=== PATIENT | male | born 1950 | race Caucasian/White ===

== ENCOUNTER 2016-09-12 00:18 | Inpatient (IN) ==
[2016-09-12] MEDS ORDERED: DILTIAZEM 50 MG/10 ML VIAL IV ONE (00:50)
[2016-09-12] MEDS ORDERED: ASPIRIN 325 MG TABLET ONE (00:51)
[2016-09-12] MEDS ORDERED: ENOXAPARIN 80 MG/0.8 ML SYRINGE SUBCUT ONE (00:51)
[2016-09-12] MEDS ORDERED: DILTIAZEM 50 MG/10 ML VIAL IV STA (00:53)
[2016-09-12] MEDS ORDERED: ENOXAPARIN 100 MG/ML SYRINGE SUBCUT STA (00:53)
[2016-09-12] MEDS ORDERED: ALUM/MAG/SIMETH/LIDO VISC 1:1 30 ML BOTTLE PO STA (00:53)
[2016-09-12] MEDS ORDERED: MORPHINE 2 MG/1 ML SYRINGE IV STA (00:53)
[2016-09-12] MEDS ORDERED: ASPIRIN 325 MG TABLET PO STA (00:53)
[2016-09-12] MEDS ORDERED: ONDANSETRON 4 MG/2 ML VIAL IV STA (00:53)
[2016-09-12] MEDS ORDERED: SODIUM CHLORIDE 0.9% 1,000 ML IV STA (00:53)
[2016-09-12] MEDS ORDERED: ONDANSETRON 4 MG/2 ML VIAL ONE (01:02)
[2016-09-12] MEDS ORDERED: MORPHINE 2 MG/1 ML SYRINGE ONE (01:03)
[2016-09-12] MEDS ORDERED: ALUM/MAG/SIMETH/LIDO VISC 1:1 30 ML BOTTLE PO ONE (01:03)
[2016-09-12 01:04] LABS: Basophils % 0.2 % (0.0-0.8); Eosinophils % 0.4 % (0.00-10.9); Hematocrit 38.3 VOL% (42.0-52.0); Hemoglobin 12.2 GM/DL (14.0-18.0); Immature Granulocytes % 0.7 %; Immature Granulocytes Absolute 0.07 #; Mean Corpuscular HGB Conc 31.9 GM/DL (32-36); Mean Corpuscular Hemoglobin 27 PG (27-34); Mean Corpuscular Volume 84.5 FL (87-102); Mean Platelet Volume 9.6 FL (9.6-12.0); Monocytes # 0.7 10*3/uL (0.11-0.8); Monocytes % 7.1 % (1.7-12.7); Neutrophils # 7.5 10*3/uL (1.4-7.4); Neutrophils % 72.6 % (38.7-73.9); Platelet Count 293 T/CUMM (130-400); Red Blood Count 4.53 MC/CUMM (3.8-5.5); Red Cell Distribution Width 13.6 % (9.3-17.3); White Blood Count 10.3 T/CUMM (4-12)
--- NOTE | 2016-09-12 01:05 | Emergency Department Note ---
Yung Qiu Brittany, am scribing for, and in the presence of, Robbie Banks MD 00:59. Jocelyn Qiu Charles R, MD, personally performed the services described in this documentation, ascribed by Daksha Barragan in my presence, and it is both accurate and complete . Arrival - Arrival Chief Complaint: Chest Pain Stated Complaint: tightness chest and back jaw pain and heart rate h ED Nursing Triage Note: Patient to triage complaining of tightness in his chest with left jaw pain and between his shoulder blades hurting. Patient does have a heart history. Patient has already taken nitro x2 with some relief. Mode of Arrival: Wheelchair Limitations: No Limitations Source: Patient, RN Notes Reviewed Time Seen by Provider: 09/12/16 00:44 - History of Present Illness HPI Narrative: Patient is a 65 y/o white male presenting to the ED with c/o chest pain with an onset of about an hour SPECIMEN BOSS. Patient reports that he was woken out of his sleep with this pain and describes it as radiating into the jaw and between the shoulder blades. Patient states he took a wrist monitor and got a BP reading of 150/140 mmHg and HR of 150 bpm. reports that patient took two SL NTG for this. After taking NTG, he remeasured BP and HR noting that both came down some , but still not within normal limits. notes that patient currently takes an ASA 325 mg/day. Patient denies having any associated nausea, vomiting, diaphoresis, or arm pain. Patient's reports that last month patient was started on Rituxan for Rheumatoid Arthritis with first infusion tolerated well. She notes that his second infusion was yesterday and wonders if current symptoms are stemming from it. In room patient is in sinus tachycardia with an irregular rhythm. No other complaint/pain in the ED at this time. Patient was given Cardizem 10 mg, this slowed patient down to 69-70. Allergies/Adverse Reactions: Allergies Allergy/AdvReac Type Severity Reaction Status Date / Time Amoxicillin [From Amoxil] Allergy ITCHING Verified 09/12/16 00:26 Home Medications: Home Medications Medication Instructions Recorded Confirmed Type Omeprazole 1 tablet PO BID 09/08/15 06/03/16 History Aspirin [Ecotrin] 325 mg PO DAILY 02/27/16 06/03/16 History Sodium Chloride 5% Oph Soln [Marito 1 drop RIGHT EYE Q4H 02/27/16 06/03/16 History 128 Oph Soln] Folic Acid Tab 1 mg PO DAILY 06/03/16 06/03/16 History Atorvastatin [Lipitor] 20 mg PO BEDTIME 06/04/16 06/04/16 History Carvedilol [Coreg] 6.25 mg PO BID 06/04/16 06/04/16 History Losartan [Cozaar] 12.5 mg PO BID 06/04/16 06/04/16 History Methotrexate Sodium [Methotrexate] 25 mg IM Q7DAY 06/04/16 06/04/16 History Review of System - Review of System 12 point system: reviewed and no additional remarkable complaints except as stated - Review of System Constitutional: Absent: diaphoresis Head/Ears/Nose/Throat: Present: see HPI Respiratory: Absent: respiratory distress Cardiovascular: Present: chest pain Musculoskeletal: Present: as per HPI, arm pain Medical,Surgical,& Family Hx - Medical History Cardio: History of: Hypertension, [place] Rheumatology: History of;: Rheumatoid Arthritis Gastrointestinal: History of: GERD Musculoskeletal: No history of: Amputation - Surgical History Cardiac Surgeries: Sugical HX of: Cardiac Catheterization (Stents x2 per Dr Rene.) Neurologic Surgeries: Patient denies: Neurologic Surgery HEENT Surgeries: Patient denies: Tonsilectomy & Adenoidectomy Abdominal Surgeries: Patient denies: Abdominal Surgery Reproductive Surgeries: Patient denies;: Genitourinary Surgery - Family History Family History: Reports;: Family Heart Disease - Social History Smoking Status: Never smoker Frequency of Alcohol Use: None Type of Drug Use: None Exam Vital Signs: Vital Signs Temperature 97.7 F 09/12/16 00:22 Pulse Rate 115 H 09/12/16 00:22 Respiratory Rate 20 09/12/16 00:50 Blood Pressure 184/164 09/12/16 00:22 O2 Sat by Pulse Oximetry 97 09/12/16 00:22 - General General appearance: alert, in no apparent distress - Head Head exam: Present: atraumatic, normocephalic, normal inspection - Eye Eye exam: Present: normal appearance, PERRL, EOMI - ENT ENT exam: Present: normal exam, normal oropharynx - Neck Neck exam: Present: normal inspection, full ROM, trachea midline - Chest Chest inspection: Present: normal inspection, symmetric chest wall rise - Respiratory Respiratory exam: Present: normal lung sounds bilaterally. Absent: rales, rhonchi, wheezes - Cardiovascular Cardiovascular exam: Present: tachycardia, irregular rhythm, normal heart sounds. Absent: regular rate, normal rhythm - Abdominal Exam Abdominal exam: Present: soft, normal bowel sounds. Absent: distention, tenderness - Extremities Exam Extremities exam: Present: normal inspection - Back Exam Back exam: Present: normal inspection - Neurological Exam Neurological exam: Present: alert, oriented X3, CN II-XII intact. Absent: motor sensory deficit - Psychiatric Psychiatric exam: Present: normal affect - Skin Skin exam: Present: warm, dry Course Course Narrative: Patient was given Cardizem 10 mg, this slowed patient down to 69-70. - Reevaluation(s) Reevaluation #1: After 10 mg of Cardizem patient A. fib was converted to normal sinus rhythm or rate is 69[address] ST depression resolved pain went away chest pain-free currently Time: 01:04 - Consultations Consultation #1: Dr. Rene will admit patient Time: 01:47 Results - Labs CBC & BMP: 09/12/16 00:53 09/12/16 00:53 Lab Results: I have reviewed the patients labs Critical Care Time Critical Care Time: Yes Total Critical Care Time: 60 Disposition Clinical Impression: CAD (coronary artery disease), History of coronary artery stent placement, GERD (gastroesophageal reflux disease), Rheumatoid arthritis, New onset A. fib with RVR, Chest pain, Angina at rest Case discussed with: patient, patient's family Disposition: Still a Patient Condition: Stable Time of Disposition: 01:47
[2016-09-12 01:16] LABS: PT Patient Result 10.1 SECS
[2016-09-12 01:32] LABS: Alanine Aminotransferase 22 U/L (16-61); Albumin 2.6 G/DL (3.4-5.0); Alkaline Phosphatase 81 U/L (45-117); Aspartate Amino Transferase 21 U/L (0-37); Bilirubin,Total < 0.39 MG/DL (0.2-1.0); Blood Urea Nitrogen 18 MG/DL (7-18); Calcium 8.5 MG/DL (8.5-10.1); Glucose 86 MG/DL (74-106); Magnesium 1.7 MG/DL (1.8-2.4); Osmolality,Calculated 286.8 MOS/KG (273-304); Potassium 3.3 MMOL/L (3.5-5.1); Sodium 144 MMOL/L (136-145); Total Protein 5.9 G/DL (6.4-8.3)
[2016-09-12] MEDS ORDERED: MAGNESIUM SULF RIDER 2 GM in PREMIX 1 EACH IV STA (01:50)
[2016-09-12] MEDS ORDERED: POTASSIUM CHLORIDE 20 MEQ TABLET PO STA (01:51)
[2016-09-12] MEDS ORDERED: LACTATED RINGERS 500 ML IV ONE (01:54)
[2016-09-12] MEDS ORDERED: MAGNESIUM SULF RIDER 50 ML IV ONE (01:57)
[2016-09-12] MEDS ORDERED: POTASSIUM CHLORIDE 20 MEQ TABLET PO ONE (01:57)
[2016-09-12] MEDS ORDERED: ONDANSETRON 4 MG/2 ML VIAL IV PRN (03:40)
[2016-09-12] MEDS ORDERED: MAGNESIUM SULF RIDER 2 GM in PREMIX 1 EACH IV PRN ×2 (03:40→11:36)
[2016-09-12] MEDS ORDERED: ALBUTEROL/IPRATROPIUM 3 ML NEB RESP TX PRN (03:40)
[2016-09-12] MEDS ORDERED: POTASSIUM CHLORIDE 20 MEQ TABLET PO PRN (03:40)
[2016-09-12] MEDS ORDERED: MAGNESIUM SULF RIDER 4 GM in PREMIX 1 EACH IV PRN (03:40)
[2016-09-12] MEDS ORDERED: MORPHINE 2 MG/1 ML SYRINGE IV PRN (03:40)
[2016-09-12 05:49] LABS: Basophils % 0.2 % (0.0-0.8); Eosinophils # 0.1 10*3/uL (0.0-0.87); Eosinophils % 0.6 % (0.00-10.9); Hematocrit 38.9 VOL% (42.0-52.0); Hemoglobin 12.2 GM/DL (14.0-18.0); Immature Granulocytes % 0.8 %; Immature Granulocytes Absolute 0.08 #; Lymphocytes # 2.6 10*3/uL (1.4-4.0); Lymphocytes % 24.4 % (21.2-54.2); Mean Corpuscular HGB Conc 31.4 GM/DL (32-36); Mean Corpuscular Hemoglobin 27 PG (27-34); Mean Corpuscular Volume 85.3 FL (87-102); Mean Platelet Volume 9.6 FL (9.6-12.0); Monocytes # 0.8 10*3/uL (0.11-0.8); Monocytes % 7.2 % (1.7-12.7); Neutrophils % 66.8 % (38.7-73.9); Platelet Count 302 T/CUMM (130-400); Red Blood Count 4.56 MC/CUMM (3.8-5.5); Red Cell Distribution Width 13.7 % (9.3-17.3); White Blood Count 10.4 T/CUMM (4-12)
[2016-09-12 06:17] LABS: Alanine Aminotransferase 24 U/L (16-61); Albumin 2.8 G/DL (3.4-5.0); Alkaline Phosphatase 78 U/L (45-117); Aspartate Amino Transferase 22 U/L (0-37); Bilirubin,Total < 0.39 MG/DL (0.2-1.0); Blood Urea Nitrogen 17 MG/DL (7-18); Calcium 8.4 MG/DL (8.5-10.1); Cholesterol 169 MG/DL (50-200); Glucose 75 MG/DL (74-106); HDL Cholesterol 44 MG/DL (40-60); Magnesium 2.4 MG/DL (1.8-2.4); Potassium 3.7 MMOL/L (3.5-5.1); Risk Ratio 3.84; Sodium 143 MMOL/L (136-145); Triglycerides 266 MG/DL (2-150); VLDL CHOLESTEROL 53.2 MG/DL
--- NOTE | 2016-09-12 08:24 | XRay Report ---
Portable chest. Indication: Chest pain. Comparison: June 03, 2016. The heart and mediastinal contours are unremarkable. The pulmonary vasculature is normal. There is no consolidation, pneumothorax, or pleural effusion. The osseous structures are unremarkable. Impression: No abnormality is seen. PROCEDURE INTERPRETED AT [facility] DEPARTMENT OF RADIOLOGY Final Report Signed by: Dr. Dara Hung
--- NOTE | 2016-09-12 08:51 | XRay Report ---
Two-view chest. Indication: Shortness of breath. Comparison: Exam from earlier today. The heart and mediastinal contours are unremarkable. The pulmonary vasculature is normal. There is a slight interval increase in the interstitial lung markings at the bases, with the presence of curly B lines now seen. No dense consolidation, pneumothorax, or pleural effusion. Osseous structures are unremarkable. Impression: Mild increase in interstitial markings at the bases. This could indicate interstitial edema or early interstitial pneumonia. PROCEDURE INTERPRETED AT [facility] DEPARTMENT OF RADIOLOGY Final Report Signed by: Dr. Dara Hung
--- NOTE | 2016-09-12 09:04 | Cardiology History & Physical ---
<Mey Schmitt Issa - Last Filed: 09/12/16 08:39> Assessment and Plan - Time spent with patient Time spent with patient: Greater than 30 minutes (Due to assessment, plan, and documentation) (1) Atrial fibrillation with rapid ventricular response Status: Acute Assessment and plan: 65 y/o WM with history of CAD, HTN, HLD, RA, former tobacco use. Admitted shortly after midnight with AF RVR, converted to SR after 1 dose of IV Cardizem 10mg. Has maintained SR with rates 60-70 since. -Currently has had no recurrent episodes of AF. Will further discuss with Dr. Rene and await his recommendations. -He is currently NPO for possible further cardiac evaluation. -Patient does have concerns over new coronary disease. Last heart catheterization was in 2012. Dr. Rene to see and discuss further evaluation. Current Visit: Yes (2) CAD (coronary artery disease) Status: Chronic Current Visit: Yes (3) GERD (gastroesophageal reflux disease) Status: Chronic Current Visit: Yes (4) History of coronary artery stent placement Status: Chronic Current Visit: Yes (5) Rheumatoid arthritis Status: Chronic Current Visit: Yes (6) Depression with anxiety Status: Chronic Current Visit: No (7) Hypercholesterolemia Status: Chronic Current Visit: No History of Present Illness Chief complaint: tachycardia, jaw pain History of present illness: [facility]: DR. RENE PCP: DR. AMBROSE Mr. Stone is a 65 year old male who is routinely followed by Dr. Rene. He has a history of coronary artery disease, hypertension, hyperlipidemia, former smoker, rheumatoid arthritis, anxiety, prior in STEMI, chronic neck pain. He is a former tobacco user. He is status post stent placement to the proximal LAD and circumflex marginal (second vessel) on March 24, [address] Rene. He presented to the emergency room shortly after midnight with complaints of left jaw pain, tachycardia, and back pain. Mr. Stone tells me that he woke up around 2330 last night with left jaw pain that felt like a toothache and a pain between his shoulder blades that felt sharp and stabbing. He checked his blood pressure and heart rate and noted that his blood pressure was elevated at 150/ 140(?) and his heart rate was 153. He tells me he took 2 sublingual nitroglycerin prior to his arrival at the emergency room but reports this did not really help his pain. He reports this did lower his heart rate and blood pressure some but not significantly. He reports this pain was severe and lasted until he arrived at the emergency department, approximately 1 hour. He reports associated feelings of palpitations. He denies any chest discomfort, shortness of breath, nausea, diaphoresis, dizziness, lightheadedness, or syncope. He tells me his heart rate usually runs between 70-80 but he has noticed over the last 3 weeks it has been elevated in the 90s. He tells me when his heart rate has been in the 90s he has no symptoms of this. In the emergency room an EKG was obtained shortly after arrival and reveals atrial fibrillation with rapid ventricular response with a heart rate of 139. He was given 2 mg IV Cardizem and subsequently converted to normal sinus rhythm with a rate of 69. Since then, he has remained in a normal sinus rhythm with rates in the 60s and 70s throughout the night. He has had a few irregular heartbeats per the review nurse but no sustained atrial fibrillation. He tells me he still feels slightly uncomfortable but is in no pain. He was noted to have some mild troponin elevations of 0.049, 0.188, 0.170, and 0.167. This could be related to his tachycardia, but given his history and symptomatology, new CAD is difficult to exclude. Will further discuss with Dr. Rene. Per recent clinic records, his home blood pressures were running 110-120/75-80. He would occasionally have orthostasis and subsequently, many of his medications were backed off of including carvedilol. He tells me that for the last month he has received 2 treatments on Rituxan for rheumatoid arthritis at [facility] in [place]. His last treatment was this past Saturday and he reports he can already tell a difference in how this makes him feel. In May 2016 he was admitted to the hospital with chest pain and was found to have a slightly elevated d-dimer. He had a negative CT of the chest and was felt to have musculoskeletal chest wall pain and was discharged home. He had out patient stress testing done at the [facility] on May 29, 2016 which revealed a normal perfusion study, low risk for future cardiovascular events, left ventricular global function was normal with EF estimated to be 74%. There was inferoapical thinning on the WILVER view thought to be due to a hot p.m. muscle of the PTL wall. No redistribution seen. There is a history of statin intolerance documented in his chart; however he is currently on atorvastatin 20 mg p.o. nightly and is tolerating this. Will further discuss with Dr. Rene and await his recommendations. Currently, Mr. Stone is in normal sinus rhythm with HR of 60 and BP of 96/59. Home Medications Medication Instructions Recorded Confirmed Type Omeprazole 1 tablet PO BID 09/08/15 06/03/16 History Aspirin [Ecotrin] 325 mg PO DAILY 02/27/16 06/03/16 History Sodium Chloride 5% Oph Soln [Marito 1 drop RIGHT EYE Q4H 02/27/16 06/03/16 History 128 Oph Soln] Folic Acid Tab 1 mg PO DAILY 06/03/16 06/03/16 History Atorvastatin [Lipitor] 20 mg PO BEDTIME 06/04/16 06/04/16 History Carvedilol [Coreg] 6.25 mg PO BID 06/04/16 06/04/16 History Losartan [Cozaar] 12.5 mg PO BID 06/04/16 06/04/16 History Methotrexate Sodium [Methotrexate] 25 mg IM Q7DAY 06/04/16 06/04/16 History Allergies Allergy/AdvReac Type Severity Reaction Status Date / Time Amoxicillin [From Amoxil] Allergy ITCHING Verified 09/12/16 00:26 Review of systems: - Constitutional: Present: As per HPI. Absent: anorexia, chills, daytime sleepiness, excessive sweating, fever(s), frequent falls, headache(s), increased appetite, lethargy, malaise, night sweats, stops breathing during sleep, weakness, weight gain, weight loss, fatigue. - EENT Eyes: Present: As per HPI. Absent: blurry vision, diplopia, loss of vision Ears: Present: As per HPI. Absent: decreased hearing, ear discharge, ear pain Nose, mouth and throat: Present: As per HPI. Absent: dysphagia, epistaxis, headache(s), hoarseness, lip swelling, nasal congestion, neck mass, neck pain, sinus pressure, sore throat, throat swelling, tongue swelling, vertigo - Cardiovascular: Present: radiating jaw, neck or arm pain, back pain, palpitations, as per HPI. Absent: chest pain at rest, chest pain with activity , dyspnea, dyspnea on exertion, edema, claudication, diaphoresis, lightheadedness, orthopnea, PND - Respiratory: Present: as per HPI. Absent: dyspnea, dyspnea on exertion, cough , hemoptysis, wheezing, snoring, pain on inspiration - Gastrointestinal: Present: diarrhea-ongoing for the last 3-6 months, has been treated numerous times by Dr. Ambrose for this issue. As per HPI. Absent: abdominal pain, bloating, change in bowel habits, constipation, heartburn, hematemesis, hematochezia, loose stools, melena, nausea, vomiting - Genitourinary: Present: As per HPI. Absent: difficulty urinating, dysuria, flank pain, hematuria, nocturia, urinary frequency, urinary incontinence - Musculoskeletal: Present: back pain, As per HPI. Absent: arthralgias, joint swelling, limited range of motion, muscle cramps, muscle weakness, myalgias - Neurological: Present: As per HPI. Absent: abnormal gait, abnormal speech, behavioral changes, confusion, convulsions, disequilibrium, dizziness, focal weakness, frequent falls, headache(s), memory loss, numbness, paresthesias, radicular pain, syncope, tremor(s) - Psychiatric: Present: As per HPI. Absent: anxiety, confusion, depression, panic attacks - Endocrine: Present: As per HPI. Absent: cold intolerance, fatigue, heat intolerance, polydipsia, polyphagia - Hematologic/Lymphatic: Present: As per HPI. Absent: easy bleeding, easy bruising, lymphadenopathy Medical,Surgical,& Family Hx - Medical History Cardio: History of: Hypertension, PR Rheumatology: History of;: Rheumatoid Arthritis Gastrointestinal: History of: GERD Musculoskeletal: No history of: Amputation - Surgical History Cardiac Surgeries: Sugical HX of: Cardiac Catheterization (Stents x2 per Dr Rene.) Neurologic Surgeries: Patient denies: Neurologic Surgery HEENT Surgeries: Patient denies: Tonsilectomy & Adenoidectomy Abdominal Surgeries: Patient denies: Abdominal Surgery Reproductive Surgeries: Patient denies;: Genitourinary Surgery - Family History Family History: Reports;: Family Heart Disease - Social History Smoking Status: Never smoker Frequency of Alcohol Use: None Type of Drug Use: None Cardiology Physical Exam - Constitutional Vitals: Vital Signs Temp Pulse Resp BP Pulse Ox 98.0 F 60 18 96/59 97 04/05/17 08:00 09/12/16 08:00 09/12/16 08:00 09/12/16 08:00 09/12/16 08:00 Intake and Output 09/11/16 09/12/16 09/12/16 22:59 06:59 14:59 Intake Total 1550 / 1550 Output Total 150 / 150 Balance 1400 / 1400 Intake: IV 1550 / 1550 Lr 500 ml @ 999 mls/hr IV 500 / 500 BOLUS ONE Rx#:[id number] Magnesium Sulf Jon 2 gm 50 / 50 /50 ml In Premix 1 Each @ 25 mls/hr IV 1X ED STA Rx#:[id number] Ns 1,000 ml @ 999 mls/hr 1000 / 1000 IV 1X ED BOLUS STA Rx#: [id number] Output: Urine 150 / 150 Other: Voiding Method Urinal # Voids 1 Weight 173 lb Exam: General appearance: Pleasant and cooperative. Normal weight, no acute distress. - Head Head exam: Present: normal inspection, normocephalic, atraumatic. Absent: hematoma, laceration - Eye Eye exam: Present: EOMI. Absent: conjunctival injection, nystagmus, periorbital swelling, scleral icterus, laceration to eyelids Pupils: Present: PERRL. Absent: constricted, dilated, fixed, irregular, unequal - ENT ENT exam: Present: normal exam, normal external ear exam - Neck Neck exam: Present: normal inspection. Absent: lymphadenopathy, meningismus, tenderness, thyromegaly, no bruit. - Respiratory Respiratory exam: Present: clear to auscultation bilaterally. Absent: accessory muscle use, chest wall tenderness, no rales, rhonchi, or wheezes. - Cardiovascular Cardiovascular exam: Present: regular rate and rhythm. Absent: carotid bruit, gallop, JVD, rubs, murmur - GI/Abdominal GI/Abdominal exam: Present: normal bowel sounds, soft, mild epigastric tenderness to palpation. Absent: distended, firm, guarding, hernia, mass, rebound. - Extremities Exam Extremities exam: Present: normal inspection, normal capillary refill. Upper extremity pulses 2+. Lower extremity pulses 2+. Absent: calf tenderness, edema - Back Exam Back exam: Present: normal inspection. Absent: muscle spasm, vertebral tenderness - Neurological Exam Neurological exam: Present: alert, oriented X3, grossly intact without resting or essential tremor - Psychiatric Psychiatric exam: Present: normal affect, normal mood - Skin Skin exam: Present: normal color, warm, dry, intact. Absent: cyanosis, diaphoretic, rash, urticaria Result/EKG - Labs CBC & BMP: 09/12/16 05:26 09/12/16 05:26 Lab Results: I have reviewed the past 24 hour labs Labs: Laboratory Results - last 24 hr 09/12/16 09/12/16 09/12/16 03:31 05:26 05:26 WBC RBC Hgb Hct MCV MCH MCHC RDW Plt Count MPV Neut % (Auto) Lymph % (Auto) [place] % (Auto) Eos % (Auto) Baso % (Auto) Neut # (Auto) Lymph # (Auto) [place] # (Auto) Eos # (Auto) Baso # (Auto) Immature Gran % Nucleated RBC % Immature Gran # Nucleated RBCs # Sodium Potassium Chloride Carbon Dioxide Anion Gap BUN Creatinine GFR Calculation BUN/Creatinine Ratio Glucose Calculated Osmolality Calcium Magnesium Total Bilirubin AST ALT Alkaline Phosphatase Total Creatine Kinase CK-MB (CK-2) Troponin I 0.188 H D B-Natriuretic Peptide Total Protein Albumin Globulin Albumin/Globulin Ratio Triglycerides Cholesterol LDL Cholesterol VLDL Cholesterol HDL Cholesterol Heart Disease Risk Ratio Free T4 1.15 TSH 3rd Generation 2.120 09/12/16 09/12/16 09/12/16 05:26 05:26 05:26 WBC 10.4 RBC 4.56 Hgb 12.2 L Hct 38.9 L MCV 85.3 L MCH 27 MCHC 31.4 L RDW 13.7 Plt Count 302 MPV 9.6 Neut % (Auto) 66.8 Lymph % (Auto) 24.4 Burnet % (Auto) 7.2 Eos % (Auto) 0.6 Baso % (Auto) 0.2 Neut # (Auto) 7.0 Lymph # (Auto) 2.6 [place]et # (Auto) 0.8 Eos # (Auto) 0.1 Baso # (Auto) 0.0 Immature Gran % 0.8 Nucleated RBC % 0.0 Immature Gran # 0.08 Nucleated RBCs # 0.00 Sodium 143 Potassium 3.7 Chloride 107 Carbon Dioxide 25 Anion Gap 14.7 BUN 17 Creatinine 0.70 GFR Calculation 117 BUN/Creatinine Ratio 24.00 H Glucose 75 Calculated Osmolality 285.0 Calcium 8.4 L Magnesium 2.4 Total Bilirubin < 0.39 AST 22 ALT 24 Alkaline Phosphatase 78 Total Creatine Kinase 52 CK-MB (CK-2) 1.5 Troponin I 0.170 H B-Natriuretic Peptide Total Protein 6.0 L Albumin 2.8 L Globulin 3.2 Albumin/Globulin Ratio 0.8 L Triglycerides 266 H Cholesterol 169 LDL Cholesterol 98.0 VLDL Cholesterol 53.2 HDL Cholesterol 44 Heart Disease Risk Ratio 3.84 Free T4 TSH 3rd Generation 09/12/16 09/12/16 05:26 06:51 WBC RBC Hgb Hct MCV MCH MCHC RDW Plt Count MPV Neut % (Auto) Lymph % (Auto) [place] % (Auto) Eos % (Auto) Baso % (Auto) Neut # (Auto) Lymph # (Auto) [place] # (Auto) Eos # (Auto) Baso # (Auto) Immature Gran % Nucleated RBC % Immature Gran # Nucleated RBCs # Sodium Potassium Chloride Carbon Dioxide Anion Gap BUN Creatinine GFR Calculation BUN/Creatinine Ratio Glucose Calculated Osmolality Calcium Magnesium Total Bilirubin AST ALT Alkaline Phosphatase Total Creatine Kinase CK-MB (CK-2) Troponin I 0.167 H B-Natriuretic Peptide 126 H Total Protein Albumin Globulin Albumin/Globulin Ratio Triglycerides Cholesterol LDL Cholesterol VLDL Cholesterol HDL Cholesterol Heart Disease Risk Ratio Free T4 TSH 3rd Generation - EKG EKG results: interpreted by me, sinus rhythm <KrishnaSean abreu - Last Filed: 09/12/16 11:47> Assessment and Plan - Time spent with patient Time spent with patient: Greater than 30 minutes (1) Chest pain in adult Status: Resolved Assessment and plan: 1. His chest pain, with sales zone troponins, particular since they have a slight increase, could very well be due to coronary disease. Less likely, it could be due to A. fib RVR, GI or musculoskeletal cause Plan/recommendation: I discussed with the patient of options for evaluation. He wants a heart cath. Left heart cath and possible PTCA or stent. He is on aspirin We will continue the carvedilol He is on Lovenox Left heart cath and possible PTCA or stent were discussed with the patient. The risk of the procedure include but are not limited to a small risk of injury to the vessel, abnormal heart rhythm, stroke, heart attack, need for emergent surgery, contrast reaction, restenosis, or . The patient voices understanding, agrees with the plan, and desires to proceed with the heart catheterization. No bleeding in the pt's bowels, urine, or coughing up blood. No planned surgery for the next year. No contraindication to anticoagulation for a year. 2. Regarding his A. fib RVR, it could be due to coronary disease but could be due to low potassium low magnesium Plan/recommendation: Replete potassium and magnesium Probably his low potassium and magnesium is due to his chronic diarrhea He will need to see his PCP and his GI doctor regarding evaluation or treatment of his chronic diarrhea. It has apparently been worked up extensively and was he was told he "needs live with it". Current Visit: No (2) Atrial fibrillation with rapid ventricular response Status: Acute Current Visit: Yes (3) Hypokalemia Status: Acute Current Visit: Yes (4) Hypomagnesemia Status: Acute Current Visit: Yes (5) Chronic diarrhea of unknown origin Status: Acute Current Visit: Yes (6) CAD (coronary artery disease) Status: Chronic Current Visit: Yes (7) GERD (gastroesophageal reflux disease) Status: Chronic Current Visit: Yes (8) History of coronary artery stent placement Status: Chronic Current Visit: Yes (9) Rheumatoid arthritis Status: Chronic Current Visit: Yes (10) Depression with anxiety Status: Chronic Current Visit: No (11) Hypercholesterolemia Status: Chronic Current Visit: No (12) Panic attacks Status: Chronic Current Visit: No (13) Statin intolerance Status: Chronic Current Visit: No History of Present Illness History of present illness: Mr. Stone is a 65 year old male Cardiology Physical Exam - Constitutional Vitals: Vital Signs Temp Pulse Resp BP Pulse Ox 98.0 F 60 18 96/59 97 09/12/16 08:00 09/12/16 08:00 09/12/16 08:00 09/12/16 08:00 09/12/16 08:00 Intake and Output 09/11/16 09/12/16 09/12/16 23:59 07:59 15:59 Intake Total 1550 / 1550 Output Total 150 / 150 Balance 1400 / 1400 Intake: IV 1550 / 1550 Lr 500 ml @ 999 mls/hr IV 500 / 500 BOLUS ONE Rx#:[id number] Magnesium Sulf Jon 2 gm 50 / 50 /50 ml In Premix 1 Each @ 25 mls/hr IV 1X ED STA Rx#:[id number] Ns 1,000 ml @ 999 mls/hr 1000 / 1000 IV 1X ED BOLUS STA Rx#: [id number] Output: Urine 150 / 150 Other: Voiding Method Urinal # Voids 1 Weight 78.471 kg Patient Weight 09/12/16 23:59 Weight 78.471 kg Result/EKG - Labs CBC & BMP: 09/12/16 05:26 09/12/16 05:26 Labs: Laboratory Results - last 24 hr 09/12/16 09/12/16 09/12/16 03:31 05:26 05:26 WBC RBC Hgb Hct MCV MCH MCHC RDW Plt Count MPV Neut % (Auto) Lymph % (Auto) Burnet % (Auto) Eos % (Auto) Baso % (Auto) Neut # (Auto) Lymph # (Auto) Burnet # (Auto) Eos # (Auto) Baso # (Auto) Immature Gran % Nucleated RBC % Immature Gran # Nucleated RBCs # Sodium Potassium Chloride Carbon Dioxide Anion Gap BUN Creatinine GFR Calculation BUN/Creatinine Ratio Glucose Calculated Osmolality Calcium Magnesium Total Bilirubin AST ALT Alkaline Phosphatase Total Creatine Kinase CK-MB (CK-2) Troponin I 0.188 H D B-Natriuretic Peptide Total Protein Albumin Globulin Albumin/Globulin Ratio Triglycerides Cholesterol LDL Cholesterol VLDL Cholesterol HDL Cholesterol Heart Disease Risk Ratio Free T4 1.15 TSH 3rd Generation 2.120 09/12/16 09/12/16 09/12/16 05:26 05:26 05:26 WBC 10.4 RBC 4.56 Hgb 12.2 L Hct 38.9 L MCV 85.3 L MCH 27 MCHC 31.4 L RDW 13.7 Plt Count 302 MPV 9.6 Neut % (Auto) 66.8 Lymph % (Auto) 24.4 Burnet % (Auto) 7.2 Eos % (Auto) 0.6 Baso % (Auto) 0.2 Neut # (Auto) 7.0 Lymph # (Auto) 2.6 Burnet # (Auto) 0.8 Eos # (Auto) 0.1 Baso # (Auto) 0.0 Immature Gran % 0.8 Nucleated RBC % 0.0 Immature Gran # 0.08 Nucleated RBCs # 0.00 Sodium 143 Potassium 3.7 Chloride 107 Carbon Dioxide 25 Anion Gap 14.7 BUN 17 Creatinine 0.70 GFR Calculation 117 BUN/Creatinine Ratio 24.00 H Glucose 75 Calculated Osmolality 285.0 Calcium 8.4 L Magnesium 2.4 Total Bilirubin < 0.39 AST 22 ALT 24 Alkaline Phosphatase 78 Total Creatine Kinase 52 CK-MB (CK-2) 1.5 Troponin I 0.170 H B-Natriuretic Peptide Total Protein 6.0 L Albumin 2.8 L Globulin 3.2 Albumin/Globulin Ratio 0.8 L Triglycerides 266 H Cholesterol 169 LDL Cholesterol 98.0 VLDL Cholesterol 53.2 HDL Cholesterol 44 Heart Disease Risk Ratio 3.84 Free T4 TSH 3rd Generation 09/12/16 09/12/16 05:26 06:51 WBC RBC Hgb Hct MCV MCH MCHC RDW Plt Count MPV Neut % (Auto) Lymph % (Auto) [place]et % (Auto) Eos % (Auto) Baso % (Auto) Neut # (Auto) Lymph # (Auto) [place]et # (Auto) Eos # (Auto) Baso # (Auto) Immature Gran % Nucleated RBC % Immature Gran # Nucleated RBCs # Sodium Potassium Chloride Carbon Dioxide Anion Gap BUN Creatinine GFR Calculation BUN/Creatinine Ratio Glucose Calculated Osmolality Calcium Magnesium Total Bilirubin AST ALT Alkaline Phosphatase Total Creatine Kinase CK-MB (CK-2) Troponin I 0.167 H B-Natriuretic Peptide 126 H Total Protein Albumin Globulin Albumin/Globulin Ratio Triglycerides Cholesterol LDL Cholesterol VLDL Cholesterol HDL Cholesterol Heart Disease Risk Ratio Free T4 TSH 3rd Generation
--- NOTE | 2016-09-12 09:11 | EKG Report ---
Stationary ECG Study [facility] ER Test Date: 09/12/2016 12:25:46 AM Pat Name: ONEAL SAHU Department: Room: 295 Gender: M Co Director: Aydin : 1950 Requested by: Robbie Fernández Order Number: [id number] Reading MD: DESHAUN VENEGAS Intervals [place] Rate: 139 P: 999 MN: 0 QRS: 88 QRSD: 92 T: 82 QT: 320 QTc: 401 Interpretive Statements ATRIAL FIBRILLATION WITH RAPID VENTRICULAR RESPONSE INCOMPLETE RIGHT BUNDLE BRANCH BLOCK MARKED ST DEPRESSION, consider ischemia Electronically Signed On 09-16-16 21:46:15 CDT by DESHAUN VENEGAS [email or web address]
--- NOTE | 2016-09-12 09:12 | EKG Report ---
Stationary ECG Study [facility] ER Test Date: 09/12/2016 1:00:13 AM Pat Name: ONEAL SAHU Department: Room: 295 Gender: M Main Line Assembler: : 1950 Requested by: Robbie Fernández Order Number: [id number] Reading MD: DESHAUN VENEGAS Intervals [place] Rate: 69 P: 76 OR: 173 QRS: 75 QRSD: 100 T: 57 QT: 384 QTc: 402 Interpretive Statements SINUS RHYTHM Minimal ST depression Electronically Signed On 09-16-16 21:47:29 CDT by DESHAUN VENEGAS [email or web address]
--- NOTE | 2016-09-12 09:12 | EKG Report ---
Stationary ECG Study [facility] Test Date: 09/12/2016 4:29:16 AM Pat Name: ONEAL SAHU Department: Room: 295 Gender: M Shear Tender: JACQUELINE : 1950 Requested by: Robbie Fernández Order Number: [id number] Reading MD: DESHAUN VENEGAS Intervals [place] Rate: 59 P: 51 IN: 167 QRS: 79 QRSD: 104 T: 39 QT: 410 QTc: 409 Interpretive Statements SINUS RHYTHM NONSPECIFIC T-WAVE ABNORMALITY Electronically Signed On 09-16-16 21:51:35 CDT by DESHAUN VENEGAS [email or web address]
[2016-09-12] MEDS ORDERED: DIAZEPAM 5 MG TABLET ONE (11:27)
[2016-09-12] MEDS ORDERED: diphenhydrAMINE CAP 25 MG CAPSULE ONE (11:27)
[2016-09-12] MEDS ORDERED: diphenhydrAMINE CAP 25 MG CAPSULE PO ONE (11:30)
[2016-09-12] MEDS ORDERED: DIAZEPAM 5 MG TABLET PO ONE (11:30)
[2016-09-12] MEDS: ASPIRIN EC 81 MG TABLET PO SCH (11:31)
[2016-09-12] MEDS ORDERED: POTASSIUM CHLORIDE RIDER 10 MEQ in PREMIX 1 EACH IV PRN (11:36)
[2016-09-12] MEDS ORDERED: LIDOCAINE 1% 20 ML VIAL ONE (11:37)
--- NOTE | 2016-09-12 11:48 | History and Physical Update ---
Sedation H&P Update - History and Physical H&P was reviewed, the patient examined and there: are no changes in the patients condition since last H&P was completed. - Dictation Physical: refer to H&P completed by admitting physician - Physical Exam Mental Status: alert and oriented Heart: regular rate and rhythm Lung: clear to auscultation Abdomen: within normal limits Vitals: within normal limits - Sedation Plan for Sedation: minimal ASA Class: II Airway Assessment: Class II: Soft palate, uvula, fauces visible
[2016-09-12] MEDS ORDERED: MIDAZOLAM 2 MG/2 ML VIAL ONE (11:49)
[2016-09-12] MEDS ORDERED: MEPERIDINE 25 MG/1 ML VIAL ONE (11:49)
[2016-09-12] MEDS ORDERED: HEPARIN 5,000 UNIT/1 ML VIAL ONE (11:50)
[2016-09-12] MEDS ORDERED: ENOXAPARIN 100 MG/ML SYRINGE SUBCUT SCH (12:00)
[2016-09-12] MEDS ORDERED: ACETAMINOPHEN 325 MG TABLET PO PRN (12:40)
[2016-09-12] MEDS ORDERED: SODIUM CHLORIDE 0.9% 1,000 ML IV SCH (12:40)
--- NOTE | 2016-09-12 12:52 | Cardiology Operative Report ---
Date of Procedure:: 09/12/16 Post-op diagnosis: same (A. fib RVR with left jaw and back pain with a slight increase in troponin, suggestive of unstable angina. He has known coronary disease, has had prior coronary stents in his LAD and circumflex.) Procedure: Date of procedure: 09/12/16 Procedure Preformed: Left heart cath Coronary angiography Left ventriculography Angiogram of the right femoral artery--by follow-through from the left ventriculogram Angio-Seal of the right femoral artery-successful Surgeon / Physician: Sean Rene Research Program Internship: Lydia Sam Post-op diagnosis: same (A. fib RVR with left jaw and back pain with a slight increase in troponin, suggestive of unstable angina. He has known coronary disease, has had prior coronary stents in his LAD and circumflex.) procedure: The patient was prepped and draped in usual manner. Entered the right femoral artery via the Seldinger technique. I used a sheath and then used a JL4 and engaged left coronary. Multiple views were taken. I then exchanged for a JR4. Multiple views of the right coronary were taken. I then exchanged for an angled pigtail. I crossed the valve. Left ventricular end-diastolic pressures measured. Left ventriculography was done. Left ventricle pullback was done. The catheters were then removed from the patient. Please see the cath data sheets for the details of catheters used. Complications: None Hemodynamic data: LVEDP was 18 mmHg. Angiographic data: The left main coronary was large and had minimal luminal irregularities. The left anterior descending artery was large and had mid vessel 30-40% narrowing, otherwise had minimal luminal irregularities. The left circumflex system was moderate to large the midportion had a. 40% eccentric narrowing, but otherwise there are minimal luminal irregularities in the circumflex The right coronary artery was large in size, dominant vessel with the PDA. there were minimal luminal irregularities. ROJAS left ventriculography revealed normal global/regional left ventricular systolic function. Overall ejection fraction was at least 55%. There is no significant mitral regurgitation. Angiogram of the right femoral artery revealed the puncture site to be in a large vessel, above the bifurcation. It was suitable for Angio-Seal. Findings: Impression: No significant obstructive coronary disease Widely patent stents of the LAD and circumflex The mid circumflex, after branches the mid LAD, both had about a 20-40% narrowing, the worst areas of narrowing Otherwise there were minimal luminal irregularities Normal global/regional left ventricular systolic function, LVEF greater than 55% Mild elevation of LVEDP, 16-18 mmHg Angiogram of the right femoral artery--from follow-through from the LV gram Angio-Seal of the right femoral artery-successful Plan/recommendations: The patient will have risk factors optimized. It is apparent that the patient's jaw pain and back pain is not due to acute coronary ischemia, at least not from fixed, obstructive coronary disease. I am suspicious that is related to the A. fib RVR. He has also had various other atypical chest pains which probably were GI or musculoskeletal related. I will reassure the patient. He will be on a low-dose of beta-bianca to help reduce his chance of having A. fib RVR. Also, however, we will replete his potassium and magnesium, hoping that will reduce his risk of having A. fib RVR. The low potassium and magnesium likely related to his chronic diarrhea. However it may be "best we can do". May just have to supplement his potassium and magnesium and ensure that these stay a normal level. He is apparently had an extensive workup for his diarrhea and no cause was found. No specific treatment was found. The patient will be on antiplatelet medications to include aspirin indefinitely . Regarding his statin intolerance, he is willing to retry a low- dose of generic Crestor. If he has muscle aches or restless legs with it, we can consider adding some selenium or using a PC SK 9 inhibitor. Follow-up will be scheduled. Addenda: I saw the patient post-cath. the groin puncture site and distal pulse are stable. vital signs are stable and the patient will be observed closely overnight. Specimens: none sent Estimated blood loss: minimal Condition: stable Anesthesia: local, conscious sedation Disposition: floor Additional CC's: Helder Ambrose Anesthesia: local, minimal conscious sedation Surgeon / Physician: Sean Rene Research Program Internship: other Estimated blood loss: minimal Specimens: none sent Condition: stable Disposition: floor
[2016-09-12] MEDS ORDERED: LOPERAMIDE 2 MG CAPSULE PO ONE (13:45)
[2016-09-12] MEDS: PANTOPRAZOLE 40 MG TABLET PO SCH (14:30)
[2016-09-12] MEDS: MAGNESIUM CHLORIDE 64 MG TABLET PO SCH ×2 (14:30→20:24)
[2016-09-12] MEDS: POTASSIUM CHLORIDE 20 MEQ PACK PO SCH (14:30)
[2016-09-12] MEDS: CARVEDILOL 3.125 MG TABLET PO SCH ×2 (14:30→20:24)
[2016-09-12 14:54] LABS: Troponin I Only 0.105 NG/ML (0.00-0.045)
[2016-09-12] MEDS: NITROGLYCERIN 2% OINT 1 INCH/GM PACK TOP SCH (15:01)
[2016-09-12] MEDS: SODIUM CHLORIDE 0.9% 1,000 ML IV SCH (15:02)
[2016-09-12 20:15] LABS: Troponin I Only 0.068 NG/ML (0.00-0.045)
[2016-09-12] MEDS: LOPERAMIDE 2 MG CAPSULE PO PRN (20:24)
[2016-09-12] MEDS: ACETAMINOPHEN/CODEINE 300-30 MG TABLET PO PRN (20:25)
[2016-09-12] MEDS ORDERED: ROSUVASTATIN 10 MG TABLET PO SCH (21:00)
[2016-09-13 04:50] LABS: Basophils % 0.3 % (0.0-0.8); Eosinophils # 0.1 10*3/uL (0.0-0.87); Eosinophils % 0.8 % (0.00-10.9); Hematocrit 36.1 VOL% (42.0-52.0); Hemoglobin 11.4 GM/DL (14.0-18.0); Immature Granulocytes Absolute 0.07 #; Lymphocytes # 1.4 10*3/uL (1.4-4.0); Mean Corpuscular HGB Conc 31.6 GM/DL (32-36); Mean Corpuscular Hemoglobin 27 PG (27-34); Mean Corpuscular Volume 83.8 FL (87-102); Mean Platelet Volume 9.9 FL (9.6-12.0); Monocytes # 0.6 10*3/uL (0.11-0.8); Monocytes % 8.7 % (1.7-12.7); Neutrophils # 5.1 10*3/uL (1.4-7.4); Neutrophils % 70.2 % (38.7-73.9); Platelet Count 253 T/CUMM (130-400); Red Blood Count 4.31 MC/CUMM (3.8-5.5); Red Cell Distribution Width 13.7 % (9.3-17.3); White Blood Count 7.3 T/CUMM (4-12)
[2016-09-13] MEDS: LOPERAMIDE 2 MG CAPSULE PO PRN (05:09)
[2016-09-13] MEDS: ACETAMINOPHEN/CODEINE 300-30 MG TABLET PO PRN (05:09)
[2016-09-13 05:25] LABS: Albumin 2.5 G/DL (3.4-5.0); Bilirubin,Total 0.6 MG/DL (0.2-1.0); Calcium 8.2 MG/DL (8.5-10.1); Magnesium 2.3 MG/DL (1.8-2.4); Potassium 3.9 MMOL/L (3.5-5.1); Total Protein 5.4 G/DL (6.4-8.3)
--- NOTE | 2016-09-13 07:51 | EKG Report ---
Stationary ECG Study [facility] Test Date: 09/13/2016 7:50:05 AM Pat Name: ONEAL SAHU Department: Room: 295 Gender: M Owner/Operator: LARISSA : 1950 Requested by: Nicole Rene Order Number: [id number] Reading MD: NICOLE RENE Intervals Harvey Rate: 63 P: 72 MS: 153 QRS: 50 QRSD: 106 T: 53 QT: 416 QTc: 424 Interpretive Statements SINUS RHYTHM Electronically Signed On 09-15-16 14:00:41 CDT by NICOLE RENE [email or web address]
[2016-09-13] MEDS: MAGNESIUM CHLORIDE 64 MG TABLET PO SCH (09:18)
[2016-09-13] MEDS: POTASSIUM CHLORIDE 20 MEQ PACK PO SCH (09:19)
[2016-09-13] MEDS: PANTOPRAZOLE 40 MG TABLET PO SCH (09:19)
[2016-09-13] MEDS: CARVEDILOL 3.125 MG TABLET PO SCH (09:19)
[2016-09-13] MEDS: ASPIRIN EC 81 MG TABLET PO SCH (09:19)
--- NOTE | 2016-09-13 10:48 | Discharge Summary ---
Hospital Course - Hospital Course Hospital Course: ARTS ADMINISTRATOR: DR. RENE PCP: DR. AMBROSE Mr. Stone is a 65 year old male who is routinely followed by Dr. Rene. He has a history of coronary artery disease, hypertension, hyperlipidemia, former smoker, rheumatoid arthritis, anxiety, prior Non-STEMI, chronic neck pain. He is status post stent placement to the proximal LAD and circumflex marginal (second vessel) on March 24, [address] Rene. He was admitted to [facility] with AF RVR and symptoms concerning for unstable angina , converted to SR after 1 dose of IV Cardizem 10mg. He has maintained SR with rates 60-70 throughout the rest of his admission. He was also hypokalemic and hypomagnesemic. This was replaced appropriately. Heart catheterization was performed per Dr. Rene 09/12/16 with the following impressions and Plan/ Recommendations noted. Impression: No significant obstructive coronary disease Widely patent stents of the LAD and circumflex The mid circumflex, after branches the mid LAD, both had about a 20-40% narrowing, the worst areas of narrowing Otherwise there were minimal luminal irregularities Normal global/regional left ventricular systolic function, LVEF greater than 55% Mild elevation of LVEDP, 16-18 mmHg Angiogram of the right femoral artery--from follow-through from the LV gram Angio-Seal of the right femoral artery-successful Plan/recommendations: It is apparent that the patient's jaw pain and back pain is not due to acute coronary ischemia, at least not from fixed, obstructive coronary disease. I am suspicious that is related to the A. fib RVR. He has also had various other atypical chest pains which probably were GI or musculoskeletal related. He will be on a low-dose of beta-bianca to help reduce his chance of having A. fib RVR. We will also replete his potassium and magnesium, hoping that will reduce his risk of having A. fib RVR. The low potassium and magnesium likely related to his chronic diarrhea. He has apparently had an extensive workup for his diarrhea and no cause was found. The patient will be on antiplatelet medications to include aspirin indefinitely . Regarding his statin intolerance, he is willing to retry a low-dose of generic Crestor. If he has muscle aches or restless legs with it, we can consider adding some selenium or using a PC SK 9 inhibitor. Patient did well post heart catheterization and was turned over to telemetry in stable condition. Right groin is stable without bleeding, hematoma and bruit. Distal pulses present. Patient denies chest pain, heaviness and tightness. He has ambulated around the room and down the taylor. Right groin remained stable post ambulation. Having felt that the patient has met maximal medical therapy, he will be discharged home in stable condition. Patient will be discharged home on slow magnesium twice daily and p.o. potassium , in hopes that this will reduce his risk of having recurrent atrial fibrillation. Patient will be given appointment for labs including BMP and magnesium at [facility] in 2 weeks. He will be given follow-up appointment with Dr. Rene in 4 weeks. We will consider outpatient echocardiogram and increasing Coreg dose at that time. Patient as well as his both verbalized understanding of discharge instructions and discharge medications. - Time spent with patient Time with patient DS: Greater than 30 minutes Diagnosis - Discharge Diagnosis (1) Atrial fibrillation with rapid ventricular response Status: Resolved (2) Chronic diarrhea of unknown origin Status: Chronic (3) Hypokalemia Status: Resolved (4) Hypomagnesemia Status: Resolved (5) CAD (coronary artery disease) Status: Chronic (6) Chest pain Status: Resolved Specialty Discharge - Follow Up or Referrals Follow up with: Sravanthi Ambrose M.D. [Primary Care Provider] - 1 Week Sean Rene MD [Physician] - (Appointment for labs only including BMP and magnesium in 2 weeks an appointment to see Dr. Rene in 4 weeks.) Discharge Plan - Discharge Data Disposition: Disch To Home/Self Care Condition at Discharge: Stable Discharge Diet: heart healthy Activity: no lifting (No heavy lifting or squatting for 1 week), other (Post cath expectations) Hygiene: may shower Weight Bearing at Discharge: other (Post cath expectations) Driving: other (Post cath expectations) Contact your physician if you experience:: fever over 101, Difficulty voiding, Redness or swelling, Nausea/Vomiting, Shortness of breath, Bleeding, pain uncontrolled by pain medications - Discharge Medications New Aspirin EC Tab 81 mg PO DAILY #30 tablet Magnesium Chloride [Slow Mag] 64 mg PO BID #60 tablet Potassium Chloride Cap/Tab [K Dur] 20 meq PO DAILY #30 tablet Rosuvastatin [Crestor] 5 mg PO BEDTIME #15 tablet Carvedilol [Coreg] 3.125 mg PO BID #60 tablet Continue Omeprazole 1 tablet PO BID Folic Acid Tab 1 mg PO DAILY Losartan [Cozaar] 12.5 mg PO BID Methotrexate Sodium [Methotrexate] 25 mg IM Q7DAY Discontinued Aspirin [Ecotrin] 325 mg PO DAILY Carvedilol [Coreg] 6.25 mg PO BID Atorvastatin [Lipitor] 20 mg PO BEDTIME No Action Sodium Chloride 5% Oph Soln [Marito 128 Oph Soln] 1 drop RIGHT EYE Q4H - Follow Up or Referral - Forms/Instructions Exam - Constitutional Vitals: Period Temp Pulse Resp BP Sys/Khalil Pulse Ox Last 24 Hr 97.3 F-98.9 F 56-76 16-18 91-129/43-71 96-98 General appearance: normal weight, no acute distress - Head Head exam: Present: normal inspection, normocephalic, atraumatic - Neck Neck exam: Present: normal inspection. Absent: lymphadenopathy, tenderness, thyromegaly - Respiratory Respiratory exam: Present: clear to auscultation bilaterally. Absent: accessory muscle use, chest wall tenderness, rales, rhonchi, stridor, wheezes - Cardiovascular Cardiovascular exam: Present: regular rate and rhythm. Absent: bradycardia, carotid bruit, gallop, rubs, systolic murmur, tachycardia - GI/Abdominal GI/Abdominal exam: Present: normal bowel sounds, soft. Absent: distended, firm , mass, tenderness - Extremities Exam Extremities exam: Present: normal inspection, normal capillary refill, other ( Right groin stable. Normal upper and lower extremity pulses). Absent: calf tenderness, edema - Neurological Exam Neurological exam: Present: alert, oriented X3, normal gait - Psychiatric Psychiatric exam: Present: normal affect, normal mood. Absent: agitated, anxious, depressed - Skin Skin exam: Present: normal color, warm, dry. Absent: cyanosis, erythema Discharge Results Labs on day of discharge: Labs from last 24 hours 09/13/16 09/13/16 09/12/16 03:30 03:30 19:36 WBC 7.3 RBC 4.31 Hgb 11.4 L Hct 36.1 L MCV 83.8 L MCH 27 MCHC 31.6 L RDW 13.7 Plt Count 253 MPV 9.9 Neut % (Auto) 70.2 Lymph % (Auto) 19.0 L [place] % (Auto) 8.7 Eos % (Auto) 0.8 Baso % (Auto) 0.3 Neut # (Auto) 5.1 Lymph # (Auto) 1.4 [place] # (Auto) 0.6 Eos # (Auto) 0.1 Baso # (Auto) 0.0 Immature Gran % 1.0 Nucleated RBC % 0.0 Immature Gran # 0.07 Nucleated RBCs # 0.00 Sodium 143 Potassium 3.9 Chloride 108 H Carbon Dioxide 27 Anion Gap 11.9 BUN 9 Creatinine 0.50 L GFR Calculation 136 BUN/Creatinine Ratio 18.00 Glucose 77 Calculated Osmolality 282.0 Calcium 8.2 L Magnesium 2.3 Total Bilirubin 0.60 AST 19 ALT 25 Alkaline Phosphatase 60 Total Creatine Kinase 40 CK-MB (CK-2) 1.0 Troponin I 0.068 H D Total Protein 5.4 L Albumin 2.5 L Globulin 2.9 Albumin/Globulin Ratio 0.8 L 09/12/16 13:24 WBC RBC Hgb Hct MCV MCH MCHC RDW Plt Count MPV Neut % (Auto) Lymph % (Auto) [place] % (Auto) Eos % (Auto) Baso % (Auto) Neut # (Auto) Lymph # (Auto) Sear[place] # (Auto) Eos # (Auto) Baso # (Auto) Immature Gran % Nucleated RBC % Immature Gran # Nucleated RBCs # Sodium Potassium Chloride Carbon Dioxide Anion Gap BUN Creatinine GFR Calculation BUN/Creatinine Ratio Glucose Calculated Osmolality Calcium Magnesium Total Bilirubin AST ALT Alkaline Phosphatase Total Creatine Kinase 43 CK-MB (CK-2) 1.3 Troponin I 0.105 H D Total Protein Albumin Globulin Albumin/Globulin Ratio - Imaging and Cardiology Cardiology Procedure: report reviewed by me DS: Provider Date of admission: 09/12/16 02:07 Primary care physician: Sravanthi Ambrose M.D. Attending physician on admission: Sean Rene MD Discharging clinician: Dara Quezada NP Expected date of discharge: 09/13/16
[2016-09-13 12:10] VITALS: BP 114/64
== END 2016-09-13 12:45 | disposition home or self-care (01) | DRG 287 ==
LOC: N.ED 00:18 → N.EDINP 02:07 → N.TELEN 02:53
PROVIDERS: ADMIT Internal Medicine Cardiovascular Disease; ATTEND Internal Medicine Cardiovascular Disease
PROC: CLCCHCL (ICD-10-PCS; 2016-09-12 12:15)

== ENCOUNTER 2017-11-05 06:57 | Observation (INO) ==
[2017-11-05 08:22] LABS: Basophils # 0.1 10*3/uL (0.0-0.2); Basophils % 0.5 % (0.0-0.8); Eosinophils # 0.2 10*3/uL (0.0-0.87); Eosinophils % 1.9 % (0.00-10.9); Hematocrit 47.1 VOL% (42.0-52.0); Hemoglobin 15.1 GM/DL (14.0-18.0); Immature Granulocytes % 0.4 %; Immature Granulocytes Absolute 0.05 #; Lymphocytes # 1.7 10*3/uL (1.4-4.0); Lymphocytes % 13.2 % (21.2-54.2); Mean Corpuscular HGB Conc 32.1 GM/DL (32-36); Mean Corpuscular Hemoglobin 28 PG (27-34); Mean Corpuscular Volume 85.6 FL (87-102); Mean Platelet Volume 9.7 FL (9.6-12.0); Monocytes # 0.9 10*3/uL (0.11-0.8); Monocytes % 6.8 % (1.7-12.7); Neutrophils # 9.7 10*3/uL (1.4-7.4); Neutrophils % 77.2 % (38.7-73.9); Platelet Count 213 T/CUMM (130-400); Red Cell Distribution Width 12.7 % (9.3-17.3); White Blood Count 12.6 T/CUMM (4-12)
[2017-11-05 08:33] LABS: PT Patient Result 10.3 SECS; Partial Thromboplastin Time 26.4 SECS (0-40)
[2017-11-05 08:40] LABS: Alanine Aminotransferase 31 U/L (16-61); Albumin 4.2 G/DL (3.4-5.0); Alkaline Phosphatase 83 U/L (45-117); Aspartate Amino Transferase 20 U/L (0-37); Blood Urea Nitrogen 18 MG/DL (7-18); Calcium 9.1 MG/DL (8.5-10.1); Glucose 88 MG/DL (74-106); Osmolality,Calculated 275.7 MOS/KG (273-304); Potassium 3.8 MMOL/L (3.5-5.1); Sodium 138 MMOL/L (136-145); Total Protein 7.8 G/DL (6.4-8.3); Troponin I Only < 0.015 NG/ML (0.00-0.045)
[2017-11-05 09:21] LABS: Apearance,Urine CLEAR (Clear); Bilirubin,Urine Negative (Negative); Blood, Urine Negative (Negative); Glucose,Urine (UA) Negative (Negative); Ketones,Urine Negative (Negative); Mucus,Urine Occasional /LPF (Occasional); Nitrite,Urine Negative (Negative); Protein,Urine Negative; RBC,Urine <1 /HPF (0-4); Urine Color Yellow (Yellow); Urine Specific Gravity 1.011 (1.001-1.035); Urine Urobilinogen < 2.0 EU/DL (0.2-1.0); WBC,Urine 1 /HPF (0-6)
[2017-11-05] MEDS ORDERED: ONDANSETRON 4 MG/2 ML VIAL IV PRN (10:21)
[2017-11-05] MEDS ORDERED: ACETAMINOPHEN 325 MG TABLET PO PRN (10:21)
[2017-11-05] MEDS: LEVOFLOXACIN INJ 750 MG in PREMIX 1 EACH IV SCH (12:11)
[2017-11-05] MEDS ORDERED: ALBUTEROL 2.5 MG/3 ML NEB RESP TX SCH (13:00)
[2017-11-05] MEDS: ALBUTEROL/IPRATROPIUM 3 ML NEB RESP TX SCH ×2 (13:45→19:18)
[2017-11-05] MEDS ORDERED: ROSUVASTATIN 10 MG TABLET PO SCH (21:00)
[2017-11-05] MEDS: MAGNESIUM CHLORIDE 64 MG TABLET PO SCH (21:34)
[2017-11-05] MEDS ORDERED: ZALEPLON 5 MG CAPSULE PO PRN (23:01)
[2017-11-06] MEDS: ALBUTEROL/IPRATROPIUM 3 ML NEB RESP TX SCH ×3 (00:47→14:18)
[2017-11-06] MEDS ORDERED: predniSONE 5 MG TABLET PO PRN (02:53)
[2017-11-06 05:21] LABS: Basophils # 0.1 10*3/uL (0.0-0.2); Basophils % 0.7 % (0.0-0.8); Eosinophils # 0.2 10*3/uL (0.0-0.87); Eosinophils % 2.2 % (0.00-10.9); Hematocrit 45.3 VOL% (42.0-52.0); Hemoglobin 14.6 GM/DL (14.0-18.0); Immature Granulocytes % 0.6 %; Immature Granulocytes Absolute 0.06 #; Lymphocytes # 1.8 10*3/uL (1.4-4.0); Lymphocytes % 17.7 % (21.2-54.2); Mean Corpuscular HGB Conc 32.2 GM/DL (32-36); Mean Corpuscular Hemoglobin 28 PG (27-34); Mean Platelet Volume 9.8 FL (9.6-12.0); Monocytes # 0.9 10*3/uL (0.11-0.8); Monocytes % 9.2 % (1.7-12.7); Neutrophils # 6.9 10*3/uL (1.4-7.4); Neutrophils % 69.6 % (38.7-73.9); Platelet Count 193 T/CUMM (130-400); Red Blood Count 5.27 MC/CUMM (3.8-5.5); Red Cell Distribution Width 12.7 % (9.3-17.3); White Blood Count 9.9 T/CUMM (4-12)
[2017-11-06 05:46] LABS: Calcium 8.7 MG/DL (8.5-10.1); Osmolality,Calculated 279.4 MOS/KG (273-304); Potassium 4.3 MMOL/L (3.5-5.1)
[2017-11-06] MEDS: MAGNESIUM CHLORIDE 64 MG TABLET PO SCH (08:41)
[2017-11-06] MEDS ORDERED: CARVEDILOL 3.125 MG TABLET PO SCH (09:00)
[2017-11-06] MEDS ORDERED: NON-FORMULARY MEDICATION (Omeprazole [Prilosec] 20 MG) PO SCH (09:00)
[2017-11-06] MEDS ORDERED: PANTOPRAZOLE 40 MG TABLET PO SCH (09:00)
[2017-11-06] MEDS ORDERED: POTASSIUM CHLORIDE 20 MEQ TABLET PO SCH (09:00)
[2017-11-06] MEDS ORDERED: ASPIRIN EC 81 MG TABLET PO SCH (09:00)
[2017-11-06 11:59] VITALS: BP 118/68
[2017-11-06] MEDS: LEVOFLOXACIN INJ 750 MG in PREMIX 1 EACH IV SCH (14:30)
== END 2017-11-06 15:00 | disposition home or self-care (01) ==
LOC: N.ED 06:57 → N.EDINP 06:57 → SUATTDRO 10:21 → N.TELEN 15:16
PROVIDERS: ADMIT Nurse Practitioner Family; ATTEND Family Medicine

== ENCOUNTER 2019-01-20 03:49 | Observation (INO) ==
[2019-01-20] MEDS ORDERED: ASPIRIN 325 MG TABLET PO STA (04:55)
[2019-01-20 05:01] LABS: Basophils % 0.3 % (0.0-0.8); Eosinophils # 0.1 10*3/uL (0.0-0.87); Eosinophils % 1.3 % (0.00-10.9); Hematocrit 42.9 VOL% (42.0-52.0); Hemoglobin 13.4 GM/DL (14.0-18.0); Immature Granulocytes % 0.5 %; Immature Granulocytes Absolute 0.04 #; Lymphocytes # 1.7 10*3/uL (1.4-4.0); Lymphocytes % 19.6 % (21.2-54.2); Mean Corpuscular HGB Conc 31.2 GM/DL (32-36); Mean Corpuscular Volume 88.1 FL (87-102); Mean Platelet Volume 10.4 FL (9.6-12.0); Monocytes % 9.1 % (1.7-12.7); Neutrophils % 69.2 % (38.7-73.9); Platelet Count 191 T/CUMM (130-400); Red Blood Count 4.87 MC/CUMM (3.8-5.5); Red Cell Distribution Width 12.8 % (9.3-17.3); White Blood Count 8.6 T/CUMM (4-12)
[2019-01-20 05:14] LABS: Albumin 3.6 G/DL (3.4-5.0); Bilirubin,Total 0.7 MG/DL (0.2-1.0); Osmolality,Calculated 290.8 MOS/KG (273-304); Total Protein 6.9 G/DL (6.4-8.3)
[2019-01-20] MEDS ORDERED: ACETAMINOPHEN 325 MG TABLET PO PRN (07:52)
[2019-01-20] MEDS ORDERED: ONDANSETRON 4 MG/2 ML VIAL IV PRN (07:52)
[2019-01-20 08:21] LABS: Risk Ratio 3.14; Thyroid Stimulating Hormone 3.21 uIU/ml (0.358-3.74); VLDL CHOLESTEROL 32.8 MG/DL
[2019-01-20] MEDS ORDERED: ASPIRIN EC 81 MG TABLET PO SCH (09:00)
[2019-01-20] MEDS ORDERED: CARVEDILOL 3.125 MG TABLET PO SCH (09:00)
[2019-01-20] MEDS ORDERED: PANTOPRAZOLE 40 MG TABLET PO SCH (09:00)
[2019-01-20] MEDS ORDERED: MAGNESIUM CHLORIDE 64 MG TABLET PO SCH (09:00)
[2019-01-20] MEDS ORDERED: POTASSIUM CHLORIDE 20 MEQ TABLET PO SCH (09:00)
[2019-01-20] MEDS ORDERED: ASPIRIN CHEW 81 MG TABLET PO ONE (09:38)
[2019-01-20 12:57] LABS: Troponin I < 0.015 NG/ML (0.00-0.045)
[2019-01-20 14:45] LABS: Troponin I < 0.015 NG/ML (0.00-0.045)
[2019-01-20 15:54] VITALS: BP 97/60
[2019-01-20] MEDS ORDERED: ROSUVASTATIN 10 MG TABLET PO SCH (21:00)
== END 2019-01-20 19:14 | disposition home or self-care (01) ==
LOC: N.ED 03:49 → N.EDINP 03:49 → N.5E 10:24
PROVIDERS: ADMIT Family Medicine; ATTEND Family Medicine

== ENCOUNTER 2020-01-20 14:59 | Inpatient (IN) ==
[2020-01-20] MEDS ORDERED: LEVOFLOXACIN INJ 750 MG in PREMIX 1 EACH IV STA (16:14)
[2020-01-20] MEDS ORDERED: DEXAMETHASONE IV ONE (16:19)
[2020-01-20] MEDS ORDERED: SODIUM CHLORIDE 0.9% IV ONE (16:19)
[2020-01-20] MEDS ORDERED: VANCOMYCIN INJ 1,500 MG in SODIUM CHLORIDE 0.9% 500 ML IV STA (16:20)
[2020-01-20] MEDS ORDERED: DEXAMETHASONE 10 MG/1 ML VIAL ONE (16:34)
[2020-01-20] MEDS ORDERED: VANCOMYCIN 1,000 MG VIAL ONE (16:34)
[2020-01-20] MEDS ORDERED: DEXAMETHASONE 4 MG/1 ML VIAL IV STA (16:37)
[2020-01-20 16:38] LABS: Basophils % 0.2 % (0.0-0.8); Hematocrit 39.2 VOL% (42.0-52.0); Hemoglobin 12.8 GM/DL (14.0-18.0); Immature Granulocytes % 2.4 %; Immature Granulocytes Absolute 0.14 #; Lymphocytes # 0.6 10*3/uL (1.4-4.0); Lymphocytes % 9.7 % (21.2-54.2); Mean Corpuscular HGB Conc 32.7 GM/DL (32-36); Mean Corpuscular Volume 83.9 FL (87-102); Mean Platelet Volume 10.1 FL (9.6-12.0); Neutrophils % 78.7 % (38.7-73.9); Platelet Count 266 T/CUMM (130-400); Red Blood Count 4.67 MC/CUMM (3.8-5.5); Red Cell Distribution Width 13.2 % (9.3-17.3); White Blood Count 5.8 T/CUMM (4-12)
[2020-01-20] MEDS ORDERED: HEPARIN 1,000 UNIT/1 ML VIAL IV STA (17:02)
[2020-01-20 17:19] LABS: INR 1.1; PT Patient Result 11.4 SECS (9.8-11.9); Partial Thromboplastin Time 32.5 SECS (23.9-33.8)
[2020-01-20] MEDS ORDERED: HEPARIN 5,000 UNIT/1 ML VIAL ONE (17:20)
[2020-01-20 17:26] LABS: Albumin 2.4 G/DL (3.4-5.0); Bilirubin,Total 0.8 MG/DL (0.2-1.0); Calcium 8.1 MG/DL (8.5-10.1); Ferritin 3905.8 ng/ml (26-388); Osmolality,Calculated 265.5 MOS/KG (273-304); Total Protein 6.2 G/DL (6.4-8.3)
[2020-01-20] MEDS ORDERED: HEPARIN DRIP 25,000 UNITS/500 ML PREMIX IV SCH (17:30)
[2020-01-20] MEDS ORDERED: GLUCAGON 1 MG VIAL IM PRN (17:44)
[2020-01-20] MEDS ORDERED: ONDANSETRON 4 MG/2 ML VIAL IV PRN (17:44)
[2020-01-20] MEDS ORDERED: DEXTROSE 50% 25 GM/50 ML VIAL IV PRN (17:44)
[2020-01-20] MEDS ORDERED: ACETAMINOPHEN 325 MG TABLET PO PRN (17:44)
[2020-01-20 18:21] LABS: Apearance,Urine CLEAR (Clear); Bilirubin,Urine Negative (Negative); Blood, Urine Negative (Negative); Glucose,Urine (UA) Negative (Negative); Ketones,Urine Negative (Negative); Nitrite,Urine Negative (Negative); Protein,Urine Negative; RBC,Urine <1 /HPF (0-4); Urine Color Yellow (Yellow); Urine Specific Gravity 1.005 (1.001-1.035); Urine Urobilinogen < 2.0 EU/DL (0.2-1.0); WBC,Urine 1 /HPF (0-6)
[2020-01-20] MEDS ORDERED: PNEUMOCOCCAL VACCINE (13 VALENT) 0.5 ML SYRINGE IM ONE (20:10)
[2020-01-20] MEDS: ENOXAPARIN 40 MG/0.4 ML SYRINGE SUBCUT SCH (20:30)
[2020-01-21 04:39] LABS: Basophils % 0.2 % (0.0-0.8); Hematocrit 39.8 VOL% (42.0-52.0); Hemoglobin 12.9 GM/DL (14.0-18.0); Immature Granulocytes % 1.9 %; Immature Granulocytes Absolute 0.09 #; Lymphocytes # 0.7 10*3/uL (1.4-4.0); Lymphocytes % 13.6 % (21.2-54.2); Mean Corpuscular HGB Conc 32.4 GM/DL (32-36); Mean Corpuscular Volume 83.4 FL (87-102); Mean Platelet Volume 10.2 FL (9.6-12.0); Monocytes % 10.7 % (1.7-12.7); Neutrophils % 73.6 % (38.7-73.9); Platelet Count 249 T/CUMM (130-400); Red Blood Count 4.77 MC/CUMM (3.8-5.5); Red Cell Distribution Width 13.1 % (9.3-17.3); White Blood Count 4.9 T/CUMM (4-12)
[2020-01-21 04:59] LABS: Albumin 2.2 G/DL (3.4-5.0); Bilirubin,Total 0.6 MG/DL (0.2-1.0); Calcium 8.8 MG/DL (8.5-10.1); Total Protein 6.7 G/DL (6.4-8.3)
[2020-01-21 06:10] LABS: Ferritin 3344.1 ng/ml (26-388)
[2020-01-21 06:17] LABS: Hepatitis B Core IgM Quant 0.12 Index; Hepatitis B Surface Ag Quant < 0.10 Index; Hepatitis B Surface Ag Result Negative (Negative); Hepatitis C Virus Ab Quant 0.05 Index; Hepatitis C Virus Ab Result Negative (Negative)
[2020-01-21] MEDS: ENOXAPARIN 40 MG/0.4 ML SYRINGE SUBCUT SCH ×2 (08:40→20:34)
[2020-01-21] MEDS: DEXAMETHASONE 10 MG/1 ML VIAL IV SCH (08:40)
[2020-01-21] MEDS: carvediloL 3.125 MG TABLET PO SCH ×2 (08:40→16:30)
[2020-01-21] MEDS: ASPIRIN EC 81 MG TABLET PO SCH (08:40)
[2020-01-21] MEDS: PANTOPRAZOLE 40 MG TABLET PO SCH (08:50)
[2020-01-21] MEDS ORDERED: EZETIMIBE 10 MG TABLET PO SCH (09:00)
[2020-01-21] MEDS ORDERED: POTASSIUM CHLORIDE 20 MEQ TABLET PO SCH (09:00)
[2020-01-21] MEDS ORDERED: LEVOFLOXACIN INJ 750 MG in PREMIX 1 EACH IV SCH (09:00)
[2020-01-21] MEDS ORDERED: MAGNESIUM CHLORIDE 64 MG TABLET PO SCH (09:00)
[2020-01-21] MEDS: cefTRIAXone 1,000 MG in SYRINGE 1 EACH IV SCH (10:05)
[2020-01-21] MEDS ORDERED: ROSUVASTATIN 10 MG TABLET PO SCH (21:00)
[2020-01-22 04:37] LABS: Basophils % 0.1 % (0.0-0.8); Hematocrit 39.9 VOL% (42.0-52.0); Hemoglobin 12.9 GM/DL (14.0-18.0); Immature Granulocytes % 1.5 %; Immature Granulocytes Absolute 0.15 #; Lymphocytes # 0.7 10*3/uL (1.4-4.0); Lymphocytes % 7.1 % (21.2-54.2); Mean Corpuscular HGB Conc 32.3 GM/DL (32-36); Mean Corpuscular Volume 84.4 FL (87-102); Mean Platelet Volume 10.3 FL (9.6-12.0); Monocytes % 8.5 % (1.7-12.7); Neutrophils % 82.8 % (38.7-73.9); Platelet Count 272 T/CUMM (130-400); Red Blood Count 4.73 MC/CUMM (3.8-5.5)
[2020-01-22 04:50] LABS: Calcium 9.1 MG/DL (8.5-10.1)
[2020-01-22 04:52] LABS: Albumin 2.3 G/DL (3.4-5.0); Bilirubin,Total 1.2 MG/DL (0.2-1.0); Calcium 9.1 MG/DL (8.5-10.1); Total Protein 6.6 G/DL (6.4-8.3)
[2020-01-22 05:06] LABS: Ferritin 2661.8 ng/ml (26-388)
[2020-01-22] MEDS: CHOLECALCIFEROL 1,000 UNIT TABLET PO SCH (08:44)
[2020-01-22] MEDS: ENOXAPARIN 40 MG/0.4 ML SYRINGE SUBCUT SCH ×2 (08:45→20:50)
[2020-01-22] MEDS: ASPIRIN EC 81 MG TABLET PO SCH (08:45)
[2020-01-22] MEDS: carvediloL 3.125 MG TABLET PO SCH ×2 (08:45→16:05)
[2020-01-22] MEDS: PANTOPRAZOLE 40 MG TABLET PO SCH (08:45)
[2020-01-22] MEDS: DEXAMETHASONE 10 MG/1 ML VIAL IV SCH (08:45)
[2020-01-22] MEDS: cefTRIAXone 1,000 MG in SYRINGE 1 EACH IV SCH (08:46)
[2020-01-22 13:31] LABS: Apearance,Urine CLEAR (Clear); Bilirubin,Urine Negative (Negative); Blood, Urine Negative (Negative); Glucose,Urine (UA) Negative (Negative); Ketones,Urine Negative (Negative); Mucus,Urine Occasional /LPF (Occasional); Nitrite,Urine Negative (Negative); Protein,Urine Negative; RBC,Urine 2 /HPF (0-4); Urine Color Yellow (Yellow); Urine Specific Gravity 1.017 (1.001-1.035); WBC,Urine 1 /HPF (0-6)
[2020-01-23 03:48] LABS: Basophils % 0.1 % (0.0-0.8); Hemoglobin 12.8 GM/DL (14.0-18.0); Immature Granulocytes % 1.4 %; Immature Granulocytes Absolute 0.12 #; Lymphocytes # 0.5 10*3/uL (1.4-4.0); Lymphocytes % 6.2 % (21.2-54.2); Mean Corpuscular HGB Conc 32.8 GM/DL (32-36); Mean Corpuscular Volume 83.2 FL (87-102); Mean Platelet Volume 10.6 FL (9.6-12.0); Monocytes % 7.6 % (1.7-12.7); Neutrophils % 84.7 % (38.7-73.9); Platelet Count 247 T/CUMM (130-400); Red Blood Count 4.69 MC/CUMM (3.8-5.5); Red Cell Distribution Width 13.1 % (9.3-17.3); White Blood Count 8.4 T/CUMM (4-12)
[2020-01-23 04:19] LABS: Albumin 2.3 G/DL (3.4-5.0); Bilirubin,Total 0.7 MG/DL (0.2-1.0); Calcium 8.6 MG/DL (8.5-10.1); Osmolality,Calculated 271.1 MOS/KG (273-304); Total Protein 6.5 G/DL (6.4-8.3)
[2020-01-23 04:56] LABS: Calcium 8.8 MG/DL (8.5-10.1)
[2020-01-23 04:59] VITALS: BP 109/49
[2020-01-23] MEDS: CHOLECALCIFEROL 1,000 UNIT TABLET PO SCH (08:24)
[2020-01-23] MEDS: ASPIRIN EC 81 MG TABLET PO SCH (08:24)
[2020-01-23] MEDS: DEXAMETHASONE 10 MG/1 ML VIAL IV SCH (08:25)
[2020-01-23] MEDS: ENOXAPARIN 40 MG/0.4 ML SYRINGE SUBCUT SCH (08:25)
[2020-01-23] MEDS: PANTOPRAZOLE 40 MG TABLET PO SCH (08:25)
[2020-01-23] MEDS: carvediloL 3.125 MG TABLET PO SCH (08:25)
[2020-01-23] MEDS: cefTRIAXone 1,000 MG in SYRINGE 1 EACH IV SCH (08:26)
== END 2020-01-23 15:15 | disposition home health service (06) | DRG 177 ==
LOC: N.ED 14:59 → N.EDINP 17:43 → N.CC 18:51
PROVIDERS: ADMIT Family Medicine; ATTEND Family Medicine

== ENCOUNTER 2020-01-30 22:33 | Inpatient (IN) ==
[2020-01-31 00:58] LABS: Alanine Aminotransferase 247 U/L (16-61); Albumin 2.8 G/DL (3.4-5.0); Alkaline Phosphatase 129 U/L (45-117); Aspartate Amino Transferase 75 U/L (0-37); Blood Urea Nitrogen 24 MG/DL (7-18); Calcium 9.5 MG/DL (8.5-10.1); Estimated Glom Filtration Rate 96 ML/MIN; Glucose 80 MG/DL (74-106); Osmolality,Calculated 266.5 MOS/KG (273-304); Total Protein 7.7 G/DL (6.4-8.3)
[2020-01-31 00:59] LABS: Ferritin 1714.2 ng/ml (26-388)
[2020-01-31 01:10] LABS: Basophils # 0.1 10*3/uL (0.0-0.2); Basophils % 0.4 % (0.0-0.8); Eosinophils # 0.1 10*3/uL (0.0-0.87); Eosinophils % 0.3 % (0.00-10.9); Hematocrit 46.5 VOL% (42.0-52.0); Immature Granulocytes % 5.6 %; Immature Granulocytes Absolute 0.98 #; Lymphocytes # 1.1 10*3/uL (1.4-4.0); Lymphocytes % 6.3 % (21.2-54.2); Mean Corpuscular HGB Conc 32.3 GM/DL (32-36); Mean Platelet Volume 10.1 FL (9.6-12.0); Monocytes % 6.9 % (1.7-12.7); Neutrophils % 80.5 % (38.7-73.9); Platelet Count 317 T/CUMM (130-400); Red Blood Count 5.47 MC/CUMM (3.8-5.5); Red Cell Distribution Width 13.4 % (9.3-17.3); White Blood Count 17.4 T/CUMM (4-12)
[2020-01-31 01:10] LABS: Apearance,Urine CLEAR (Clear); Bilirubin,Urine Negative (Negative); Blood, Urine Negative (Negative); Glucose,Urine (UA) Negative (Negative); Ketones,Urine Negative (Negative); Nitrite,Urine Negative (Negative); Protein,Urine Negative; RBC,Urine <1 /HPF (0-4); Squamous Epithelial Cell,Urine Occasional /HPF (0-10); Urine Color Yellow (Yellow); Urine Specific Gravity 1.016 (1.001-1.035); Urine Urobilinogen < 2.0 EU/DL (0.2-1.0); WBC,Urine 1 /HPF (0-6)
[2020-01-31] MEDS ORDERED: AZITHROMYCIN INJ 500 MG in SODIUM CHLORIDE 0.9% 250 ML IV STA (01:30)
[2020-01-31 01:32] LABS: Band Neutrophils 3 % (0-10); Lymphocytes 7 % (20-55); Total Cells Counted 100
[2020-01-31 01:33] LABS: Anisocytosis Slight; Macrocytosis Slight; Metamyelocytes 3 %; Myelocytes 1 %; Platelet Estimate Normal; Segmented Neutrophils 80 % (50-85)
[2020-01-31] MEDS ORDERED: ONDANSETRON 4 MG/2 ML VIAL IV PRN (04:50)
[2020-01-31] MEDS ORDERED: GLUCAGON 1 MG VIAL IM PRN (04:50)
[2020-01-31] MEDS ORDERED: hydrALAZINE 20 MG/1 ML VIAL IV PRN (04:50)
[2020-01-31] MEDS ORDERED: DEXTROSE 50% 25 GM/50 ML VIAL IV PRN (04:50)
[2020-01-31] MEDS ORDERED: guaiFENesin/DM ER 600-30 MG TABLET PO PRN (04:50)
[2020-01-31] MEDS ORDERED: NICOTINE 21 MG/24 HR PATCH TRANSDERM PRN (04:50)
[2020-01-31] MEDS ORDERED: SODIUM CHLORIDE 0.9% 500 ML IV ONE (04:57)
[2020-01-31] MEDS ORDERED: cefTRIAXone 1,000 MG in SYRINGE 1 EACH IV SCH (05:00)
[2020-01-31] MEDS ORDERED: methylPREDNISolone SOD SUC 40 MG/1 ML VIAL IV SCH (05:00)
[2020-01-31] MEDS: SODIUM CHLORIDE 0.9% 1,000 ML IV SCH ×3 (05:37→18:14)
[2020-01-31] MEDS: ALBUTEROL/IPRATROPIUM 3 ML NEB RESP TX SCH ×3 (06:48→19:23)
[2020-01-31] MEDS ORDERED: AZITHROMYCIN 250 MG TABLET PO SCH (09:00)
[2020-01-31] MEDS: DEXAMETHASONE 4 MG/1 ML VIAL IV SCH (12:54)
[2020-01-31] MEDS: ENOXAPARIN 40 MG/0.4 ML SYRINGE SUBCUT SCH (12:54)
[2020-01-31] MEDS: LEVOFLOXACIN INJ 750 MG in PREMIX 1 EACH IV SCH (12:55)
[2020-02-01] MEDS: SODIUM CHLORIDE 0.9% 1,000 ML IV SCH ×2 (01:25→05:51)
[2020-02-01] MEDS: ALBUTEROL/IPRATROPIUM 3 ML NEB RESP TX SCH ×4 (01:59→20:13)
[2020-02-01 05:32] LABS: Basophils % 0.2 % (0.0-0.8); Eosinophils % 0.1 % (0.00-10.9); Hematocrit 38.5 VOL% (42.0-52.0); Immature Granulocytes % 4.1 %; Immature Granulocytes Absolute 0.46 #; Lymphocytes # 0.7 10*3/uL (1.4-4.0); Lymphocytes % 6.5 % (21.2-54.2); Mean Corpuscular HGB Conc 31.7 GM/DL (32-36); Mean Corpuscular Volume 84.6 FL (87-102); Mean Platelet Volume 9.7 FL (9.6-12.0); Neutrophils % 83.1 % (38.7-73.9); Red Blood Count 4.55 MC/CUMM (3.8-5.5); Red Cell Distribution Width 13.7 % (9.3-17.3)
[2020-02-01 05:44] LABS: Hemoglobin 12.2 GM/DL (14.0-18.0); Platelet Count 213 T/CUMM (130-400); White Blood Count 11.2 T/CUMM (4-12)
[2020-02-01 05:46] LABS: Calcium 8.4 MG/DL (8.5-10.1); Osmolality,Calculated 274.8 MOS/KG (273-304)
[2020-02-01 05:51] LABS: Albumin 2.2 G/DL (3.4-5.0); Bilirubin,Total 1.1 MG/DL (0.2-1.0); Calcium 8.9 MG/DL (8.5-10.1); Total Protein 6.2 G/DL (6.4-8.3)
[2020-02-01 07:55] LABS: Band Neutrophils 1 % (0-10); Lymphocytes 3 % (20-55); Metamyelocytes 1 %; Myelocytes 1 %; Segmented Neutrophils 91 % (50-85); Total Cells Counted 100
[2020-02-01 07:56] LABS: Hypochromasia 1+; Microcytosis 1+; Ovalocytes Few; Platelet Estimate Normal
[2020-02-01] MEDS: DEXAMETHASONE 4 MG/1 ML VIAL IV SCH (09:08)
[2020-02-01] MEDS: LEVOFLOXACIN INJ 750 MG in PREMIX 1 EACH IV SCH (13:46)
[2020-02-01] MEDS: ENOXAPARIN 40 MG/0.4 ML SYRINGE SUBCUT SCH (13:46)
[2020-02-01] MEDS ORDERED: FUROSEMIDE 40 MG/4 ML VIAL IV ONE (14:40)
[2020-02-01] MEDS: PANTOPRAZOLE 40 MG TABLET PO SCH (15:58)
[2020-02-02] MEDS: ALBUTEROL/IPRATROPIUM 3 ML NEB RESP TX SCH ×4 (01:14→19:21)
[2020-02-02 06:01] LABS: Basophils % 0.2 % (0.0-0.8); Eosinophils % 0.2 % (0.00-10.9); Hematocrit 39.8 VOL% (42.0-52.0); Hemoglobin 12.6 GM/DL (14.0-18.0); Immature Granulocytes % 2.3 %; Immature Granulocytes Absolute 0.29 #; Lymphocytes # 0.8 10*3/uL (1.4-4.0); Lymphocytes % 6.3 % (21.2-54.2); Mean Corpuscular HGB Conc 31.7 GM/DL (32-36); Mean Corpuscular Volume 86.5 FL (87-102); Mean Platelet Volume 9.8 FL (9.6-12.0); Monocytes % 5.5 % (1.7-12.7); Neutrophils % 85.5 % (38.7-73.9); Platelet Count 227 T/CUMM (130-400); Red Cell Distribution Width 13.7 % (9.3-17.3); White Blood Count 12.8 T/CUMM (4-12)
[2020-02-02 06:20] LABS: Calcium 8.8 MG/DL (8.5-10.1); Osmolality,Calculated 274.8 MOS/KG (273-304)
[2020-02-02] MEDS: PANTOPRAZOLE 40 MG TABLET PO SCH (09:36)
[2020-02-02] MEDS: DEXAMETHASONE 4 MG/1 ML VIAL IV SCH (09:36)
[2020-02-02] MEDS: ENOXAPARIN 40 MG/0.4 ML SYRINGE SUBCUT SCH (12:43)
[2020-02-02] MEDS: LEVOFLOXACIN INJ 750 MG in PREMIX 1 EACH IV SCH (12:43)
[2020-02-02] MEDS: ACETAMINOPHEN 325 MG TABLET PO PRN (12:44)
[2020-02-02] MEDS: [UNRECOGNIZED DRUG - OTHER] PO SCH ×3 (16:21→23:14)
[2020-02-02] MEDS: EZETIMIBE 10 MG TABLET PO SCH (16:21)
[2020-02-02] MEDS: ASPIRIN EC 81 MG TABLET PO SCH (16:21)
[2020-02-02] MEDS: carvediloL 3.125 MG TABLET PO SCH (20:55)
[2020-02-02] MEDS: ROSUVASTATIN 10 MG TABLET PO SCH (20:55)
[2020-02-03] MEDS: ALBUTEROL/IPRATROPIUM 3 ML NEB RESP TX SCH ×4 (00:30→19:56)
[2020-02-03] MEDS: [UNRECOGNIZED DRUG - OTHER] PO SCH ×6 (03:46→23:56)
[2020-02-03 05:45] LABS: Risk Ratio 2.71; VLDL CHOLESTEROL 25.8 MG/DL
[2020-02-03] MEDS: EZETIMIBE 10 MG TABLET PO SCH (09:03)
[2020-02-03] MEDS: predniSONE 20 MG TABLET PO SCH (09:03)
[2020-02-03] MEDS: PANTOPRAZOLE 40 MG TABLET PO SCH (09:03)
[2020-02-03] MEDS: ASPIRIN EC 81 MG TABLET PO SCH (09:03)
[2020-02-03] MEDS: carvediloL 3.125 MG TABLET PO SCH ×2 (09:04→21:02)
[2020-02-03] MEDS: LEVOFLOXACIN INJ 750 MG in PREMIX 1 EACH IV SCH (11:31)
[2020-02-03] MEDS: ACETAMINOPHEN 325 MG TABLET PO PRN (11:39)
[2020-02-03] MEDS: ENOXAPARIN 40 MG/0.4 ML SYRINGE SUBCUT SCH (11:39)
[2020-02-03 15:17] LABS: Basophils % 0.2 % (0.0-0.8); Eosinophils % 0.2 % (0.00-10.9); Hematocrit 38.8 VOL% (42.0-52.0); Hemoglobin 12.4 GM/DL (14.0-18.0); Immature Granulocytes Absolute 0.23 #; Lymphocytes # 0.7 10*3/uL (1.4-4.0); Lymphocytes % 5.7 % (21.2-54.2); Mean Platelet Volume 9.2 FL (9.6-12.0); Monocytes % 2.7 % (1.7-12.7); Neutrophils % 89.2 % (38.7-73.9); Platelet Count 202 T/CUMM (130-400); Red Blood Count 4.51 MC/CUMM (3.8-5.5); Red Cell Distribution Width 13.7 % (9.3-17.3); White Blood Count 11.4 T/CUMM (4-12)
[2020-02-03] MEDS: AZTREONAM 2,000 MG in SYRINGE 1 EACH IV SCH ×2 (16:06→21:02)
[2020-02-03 16:41] LABS: Apearance,Urine CLEAR (Clear); Bacteria,Urine Occasional /HPF (Few); Bilirubin,Urine Negative (Negative); Blood, Urine Negative (Negative); Glucose,Urine (UA) Negative (Negative); Ketones,Urine Negative (Negative); Nitrite,Urine Negative (Negative); Protein,Urine Negative; RBC,Urine 1 /HPF (0-4); Urine Color Yellow (Yellow); Urine Specific Gravity 1.009 (1.001-1.035); Urine Urobilinogen < 2.0 EU/DL (0.2-1.0); WBC,Urine <1 /HPF (0-6)
[2020-02-03] MEDS: ROSUVASTATIN 10 MG TABLET PO SCH (21:01)
[2020-02-04] MEDS: ALBUTEROL/IPRATROPIUM 3 ML NEB RESP TX SCH ×3 (00:50→13:28)
[2020-02-04] MEDS: AZTREONAM 2,000 MG in SYRINGE 1 EACH IV SCH ×2 (03:30→08:19)
[2020-02-04] MEDS: [UNRECOGNIZED DRUG - OTHER] PO SCH ×3 (03:35→11:59)
[2020-02-04 05:56] LABS: Basophils % 0.1 % (0.0-0.8); Eosinophils # 0.1 10*3/uL (0.0-0.87); Eosinophils % 0.6 % (0.00-10.9); Hematocrit 38.9 VOL% (42.0-52.0); Hemoglobin 12.5 GM/DL (14.0-18.0); Immature Granulocytes % 1.7 %; Immature Granulocytes Absolute 0.15 #; Lymphocytes # 0.9 10*3/uL (1.4-4.0); Lymphocytes % 9.4 % (21.2-54.2); Mean Corpuscular HGB Conc 32.1 GM/DL (32-36); Mean Corpuscular Volume 85.9 FL (87-102); Mean Platelet Volume 9.6 FL (9.6-12.0); Monocytes % 4.6 % (1.7-12.7); Neutrophils % 83.6 % (38.7-73.9); Platelet Count 182 T/CUMM (130-400); Red Blood Count 4.53 MC/CUMM (3.8-5.5); Red Cell Distribution Width 13.8 % (9.3-17.3); White Blood Count 9.1 T/CUMM (4-12)
[2020-02-04 06:21] LABS: Calcium 8.9 MG/DL (8.5-10.1)
[2020-02-04] MEDS: EZETIMIBE 10 MG TABLET PO SCH (08:20)
[2020-02-04] MEDS: ASPIRIN EC 81 MG TABLET PO SCH (08:20)
[2020-02-04] MEDS: predniSONE 20 MG TABLET PO SCH (08:20)
[2020-02-04] MEDS: carvediloL 3.125 MG TABLET PO SCH (08:20)
[2020-02-04] MEDS: PANTOPRAZOLE 40 MG TABLET PO SCH (08:21)
[2020-02-04] MEDS: LEVOFLOXACIN INJ 750 MG in PREMIX 1 EACH IV SCH (12:02)
[2020-02-04] MEDS: ENOXAPARIN 40 MG/0.4 ML SYRINGE SUBCUT SCH (12:03)
[2020-02-04 12:35] VITALS: BP 105/55
[2020-02-06] MEDS ORDERED: predniSONE 20 MG TABLET PO SCH (09:00)
[2020-02-09] MEDS ORDERED: predniSONE 20 MG TABLET PO SCH (09:00)
[2020-02-12] MEDS ORDERED: predniSONE 10 MG TABLET PO SCH (09:00)
== END 2020-02-04 15:07 | disposition home or self-care (01) | DRG 197 ==
LOC: N.ED 22:33 → N.EDINP 22:33 → SUATTDRO 01-31 03:13 → N.TELEN 01-31 03:31
PROVIDERS: ADMIT Emergency Medicine; ATTEND Internal Medicine